=== PATIENT | female | born 1975 | race Caucasian/White ===

== ENCOUNTER 2017-01-20 15:41 | Emergency (ER) | payer BC ==
[2017-01-20] MEDS ORDERED: MAG HYDROX/ALUMINUM HYD/SIMETH 30 ML UDC PO ONE (15:51)
[2017-01-20] MEDS ORDERED: ASPIRIN 81 MG TAB.CHEW PO ONE (15:51)
[2017-01-20] MEDS ORDERED: SUCRALFATE 1 G/10 ML UDC PO ONE (15:51)
[2017-01-20] MEDS ORDERED: LIDOCAINE HCL 20 ML UDC PO ONE (15:51)
[2017-01-20] MEDS ORDERED: ASPIRIN 81 MG TAB.CHEW ONE (15:54)
--- NOTE | 2017-01-20 15:59 | ERNOTE ---
Chest Pain/Cardiac HPI Date of Service: 01/20/17 Time Seen by Provider: 01/20/17 15:45 Source: patient Exam Limitations: no limitations Immunizations: IMMUNIZATION HX Immunizations Up to Date No History of Influenza Vaccine No Hx Pneumococcal Vaccination No Allergies/Adverse Reactions: Allergies morphine Allergy (Mild, Verified 07/30/12 08:44) Penicillins Allergy (Mild, Verified 07/30/12 08:45) Home Medications: HOME MEDICATIONS Omeprazole [Prilosec] 20 mg PO DAILY #30 cap 01/20/17 [Last Taken Unknown] Xanax 01/20/17 [Last Taken Unknown] Narrative: Pt. comes in with c/o mid upper epigastric/ lower chest pain since 1130 this morning that started as mild and continued to worsen throughout the afternoon. Pt. denies any SOB, NVD, fever, recent illness, or injury. Pt. states that the pain radiates to her R upper abdomen and mid to lower back. Pt. denies any prehospital treatment, aggravating factors, or alleviating factors. Review of Systems - Review of Systems Constitutional: Present: no symptoms reported. Absent: fever, chills, weakness , fatigue, malaise EYE: Present: no symptoms reported ENT: Present: no symptoms reported Respiratory: Present: no symptoms reported. Absent: shortness of breath, cough , wheezing Cardiology: Present: chest pain. Absent: palpitations, syncope, edema Gastrointestinal/Abdominal: Present: abdominal pain. Absent: nausea, vomiting, diarrhea, constipation Genitourinary: Present: no symptoms reported. Absent: frequency, decreased urinary output Musculoskeletal: Present: back pain. Absent: muscle pain, muscle stiffness, joint pain Skin: Present: no symptoms reported. Absent: rash, change in color, change in hair/nails Neurological: Present: no symptoms reported. Absent: headache, dizziness/light- headedness, numbness, tingling All Other Systems: All systems neg except as marked - Patient's Past Medical History Patient History - Medical: No pertinent hx Patient History - Cardiac/Respiratory: Hyperlipidemia - Immunizations Immunizations Up to Date: No Hx Pneumococcal Vaccination: No History of Influenza Vaccine: No Physical Exam - Physical Exam General Appearance: Present: wd/wn, alert, no apparent distress Head Exam: Present: normal inspection, no evidence of injury Eye Exam: Normal inspection: bilateral, PERRL: bilateral, EOMI: bilateral Ears, Nose, Throat: Present: normal ENT inspection, normal pharynx Neck: Present: normal inspection, nontender. Absent: lymphadenopathy (R), lymphadenopathy (L) Respiratory: Present: no respiratory distress, normal breath sounds, no accessory muscle use, chest nontender, lungs clear Cardiovascular/Chest: Present: regular rate, rhythm, no murmur, normal peripheral pulses Gastrointestinal/Abdominal: Present: normal bowel sounds, nondistended, soft, no organomegaly, tenderness - LUQ RUQ Back Exam: Present: normal inspection, normal range of motion, no CVA tenderness , no vertebral tenderness Extremity Exam: Present: normal inspection, non-tender, normal range of motion, no edema Neurological Exam: Present: alert, oriented, normal mood/affect, no motor/ sensory deficits Skin Exam: Present: normal color, warm/dry. Absent: pallor, skin rash ED Progress - Results and Orders Patient's Lab Results:: I have reviewed the patient's lab results. - Vital Signs Patient's Vital Signs:: I have reviewed the patient's vital signs. - X-Ray X-Ray #1 X-Ray: abdomen Interpretation: Interp. by me X-ray Comments: No acute abnormality - Progress/Reassessment Progress:: Improved Departure Clinical Impression: Gastritis Qualifiers: Gastritis type: unspecified gastritis Chronicity: acute Gastritis bleeding: without bleeding Qualified Code(s): K29.00 - Acute gastritis without bleeding - Departure Disposition: Home self-care Condition: Good Instructions: Gastritis, Adult, [id number] Additional Instructions: Please start prilosec daily continuously and miralax 1 capful daily for three days. Please follow up with primary provider in 2-3 days for discussion of possible further workup. Prescriptions: Omeprazole [Prilosec] 20 mg PO DAILY #30 cap
[2017-01-20 16:09] LABS: Hemoglobin 16.1 gm/dL (12.5-16.0); Mean Cell Volume 88.5 fl (78-100); Mean Platelet Volume 9.2 fl (6.0-9.5); Neutrophil # 11.9 K/mm3 (1.3-6.0); Platelet Count 317 K/mm3 (150-450); Red Cell Distribution Width 12.3 % (11.5-14.0); White Blood Count 15.8 K/mm3 (4.0-10.5)
[2017-01-20 16:33] LABS: ALT 22 U/L (19-67); AST 13 U/L (0-48); Albumin * 3.8 gm/dl (3.4-5.0); Alkaline Phosphatase * 101 U/L (50-170); Amylase * 99 U/L (25-115); Anion Gap 12.3 mmol/L (6.8-13.8); BUN/Creatinine Ratio 14.1 (9.0-21.6); Bilirubin, Total 0.3 mg/dL (0.0-1.1); Blood Urea Nitrogen 11 mg/dL (3-23); Ca. Corrected For Albumin 9.5 mg/dL (8.4-10.2); Calcium * 9.7 mg/dL (7.9-10.9); Carbon Dioxide 28.9 mmol/L (24-32.6); Chloride 102 mmol/L (97-106); Glucose * 102 mg/dL (70-110); Lipase 156 U/L (73-393); Potassium 4.2 mmol/L (3.4-4.6); Sodium 139 mmol/L (132-142); Total Protein 7.6 gm/dL (6.2-8.2); Troponin I Less than 0.017 ng/ml (0.00-0.10)
[2017-01-20] MEDS ORDERED: KETOROLAC TROMETHAMINE 30 MG/ML VIAL IM ONE (16:40)
[2017-01-20 16:42] LABS: INR 0.96 INR (0.90-1.10); Partial Thrombolplastin Time 29.4 Seconds (24-32)
[2017-01-20] MEDS ORDERED: KETOROLAC TROMETHAMINE 30 MG/ML VIAL ONE (16:48)
[2017-01-20 17:01] LABS: Urine Bilirubin Negative (NEGATIVE); Urine Blood Negative /ul (NEGATIVE); Urine Ketone Negative (NEGATIVE); Urine Nitrite Negative (NEGATIVE); Urine Protein 15 mg/dL (NEGATIVE); Urine Specific Gravity 1.015 SP.GR. (1.005-1.010); Urine Urobilinogen Normal (NORMAL)
[2017-01-20 17:12] LABS: Urine Amorphous Sediment Few - 1+ (NONE-FEW); Urine Appearance Clear; Urine Bacteria 1+; Urine Color Yellow; Urine RBC None Seen /hpf (0-5); Urine WBC None Seen /hpf (0-5)
[2017-01-20 17:34] VITALS: BP 142/80
== END 2017-01-20 17:32 | disposition home or self-care (01) ==
LOC: ER 15:41
DX: K29.00 Acute gastritis without bleeding (principal)